=== PATIENT | female | born 1955 | race American Indian/Alaskan Native ===

== ENCOUNTER 2019-03-31 11:35 | Outpatient (CLI) | payer OTHER | END 2019-03-31 11:36 | disposition home or self-care (01) | LOC: PF 11:35 | PROVIDERS: ATTEND Internal Medicine | DX: J45.909 Unspecified asthma, uncomplicated (principal) | CPT/HCPCS: 94010 ==

== ENCOUNTER 2019-06-26 00:10 | Emergency (ER) | payer OTHER ==
[2019-06-26 00:58] LABS: Basophils % (Auto) 0.4 % (0.0-1.8); Eosinophils # (Auto) 0.1 K/mm3 (0.0-0.4); Eosinophils % (Auto) 1.8 % (0.0-4.3); Hematocrit 33.8 % (30.3-42.9); Hemoglobin 10.7 gm/dl (10.1-14.3); Lymphocytes # (Auto) 3.4 K/mm3 (1.2-5.4); Lymphocytes % (Auto) 42.5 % (13.4-35.0); Mean Corpuscular HGB Conc 32 % (30-34); Mean Corpuscular Volume 85 fl (79-97); Monocytes # (Auto) 0.6 K/mm3 (0.0-0.8); Monocytes % (Auto) 7.3 % (0.0-7.3); Platelet Count 216 K/mm3 (140-440); Red Blood Count 3.98 M/mm3 (3.65-5.03); Red Cell Distribution Width 16.5 % (13.2-15.2)
[2019-06-26] MEDS ORDERED: ZOFRAN IV ONE (01:27)
[2019-06-26] MEDS ORDERED: NACL 0.9% 1000 ML 1,000 ML IV ONE (01:29)
[2019-06-26] MEDS ORDERED: CEPHULAC PO ONE (01:32)
--- NOTE | 2019-06-26 01:35 | Emergency Department Report ---
HPI - General Chief Complaint: Abdominal Pain Time Seen by Provider: 06/26/19 01:19 - HPI HPI: Room 19 Patient is 63-year-old female presented with the chief complaint of Abdominal pain and constipation. The patient states she's been constipated for the past 2 days. Patient states she also feels the urge to urinate but has been unable to. The patient says she cannot have a bowel movement and only a small amount of liquid stool leaks out unintentionally. Patient states she is unable to pass flatus. Patient denies nausea vomiting or fever. Patient complains of rectal pain when wiping. Location: [See above] Duration: [See above] Quality: [See above] Severity: [See above] Timing: [See above] Context: [See above] Modifying factors: [See above] Associated signs and symptoms: [see above] ED Past Medical Hx - Past Medical History Hx Hypertension: Yes Hx Diabetes: Yes Hx GERD: Yes Hx Renal Disease: Yes Additional medical history: ulcers. rheumatic heart disease / MURMUR. sleep apnea - Surgical History Past Surgical History?: Yes Additional Surgical History: hysterectomy bladder tack - Family History Family history: no significant - Social History Smoking Status: Never Smoker Substance Use Type: None (denies illicit drug use), Alcohol (occasional) - Medications Home Medications: Home Medications Medication Instructions Recorded Confirmed Last Taken Type Insulin Glargine,Hum.rec.anlog 40 unit SQ QHS 07/14/13 01/27/16 01/26/16 History [Lantus Solostar] Insulin Lispro [Humalog] 15 unit SQ TID 07/14/13 01/27/16 01/26/16 History hydroCHLOROthiazide [Hctz] 20 mg PO QDAY 07/14/13 01/27/16 01/26/16 History Ciprofloxacin HCl [Ciprofloxacin 500 mg PO Q12H #14 tab 01/27/16 Unknown Rx TAB] Linaclotide [Linzess] mcg PO QDAY 01/27/16 01/26/16 History Omeprazole [PriLOSEC] mg PO QDAY 01/27/16 01/26/16 History Saxagliptin HCl [Onglyza] 5 mg PO QDAY 01/27/16 01/27/16 01/26/16 History Ciprofloxacin HCl [Ciprofloxacin 500 mg PO Q12HR #14 tab 01/28/16 Unknown Rx TAB] Docusate Sodium [Colace] 100 mg PO BID PRN #60 capsule 06/26/19 Unknown Rx Lactulose [Cephulac] 20 gm PO QDAY #90 ml 06/26/19 Unknown Rx ED Review of Systems ROS: Stated complaint: CONSTIPATION, UNABLE TO URINATE Other details as noted in HPI Constitutional: denies: fever Eyes: denies: eye pain ENT: denies: throat pain Respiratory: no symptoms reported Cardiovascular: denies: chest pain Endocrine: no symptoms reported Gastrointestinal: abdominal pain, constipation. denies: nausea, vomiting Genitourinary: other (urinary retention) Musculoskeletal: denies: back pain Neurological: denies: headache Physical Exam - Physical Exam Vital Signs: Vital Signs 06/26/19 00:14 Temperature 97.0 F L Pulse Rate 97 H Respiratory 18 Rate Blood Pressure 101/62 O2 Sat by Pulse 100 Oximetry Physical Exam: GENERAL: The patient is well-developed well-nourished female standing in room leaning over stretcher appearing to be in moderate discomfort. [] HEENT: Normocephalic. Atraumatic. Extraocular motions are intact. Patient has moist mucous membranes. NECK: Supple. Trachea midline CHEST/LUNGS: Clear to auscultation. There is no respiratory distress noted. HEART/CARDIOVASCULAR: Regular. There is no tachycardia. There is no gallop rub or murmur. ABDOMEN: Abdomen is soft, with diffuse discomfort to palpation. Patient has normal bowel sounds. There is no abdominal distention. SKIN: There is no rash. There is no edema. There is no diaphoresis. NEURO: The patient is awake, alert, and oriented. The patient is cooperative. T he patient has normal speech and gait. MUSCULOSKELETAL: There is no evidence of acute injury. ED Course Vital Signs 06/26/19 00:14 Temperature 97.0 F L Pulse Rate 97 H Respiratory 18 Rate Blood Pressure 101/62 O2 Sat by Pulse 100 Oximetry - Reevaluation(s) Reevaluation #1: 06/26/19 05:49 Patient states she has had a good bowel movement and feels improved. - Rectal Disimpaction Consent Obtained: verbal consent Time Out Performed: No Indication: fecal impaction Procedural Sedation: No Technique: manual disimpaction with Complications: pain Patient Tolerated Procedure: no complications Additional Comments: A globus of stool was removed approximately 3 times manually. Stool is soft. Patient complained of pain so procedure was discontinued ED Medical Decision Making - Lab Data Result diagrams: 06/26/19 00:40 06/26/19 00:40 Laboratory Tests 06/26/19 06/26/19 06/26/19 00:40 00:40 Unknown WBC 7.9 RBC 3.98 Hgb 10.7 Hct 33.8 MCV 85 MCH 27 L MCHC 32 RDW 16.5 H Plt Count 216 Lymph % (Auto) 42.5 H Perkins % (Auto) 7.3 Eos % (Auto) 1.8 Baso % (Auto) 0.4 Lymph # 3.4 Perkins # 0.6 Eos # 0.1 Baso # 0.0 Seg Neutrophils % 48.0 Seg Neutrophils # 3.8 Sodium 138 Potassium 3.7 Chloride 96.7 L Carbon Dioxide 20 L Anion Gap 25 BUN 46 H Creatinine 1.8 H Estimated GFR 34 BUN/Creatinine Ratio 26 Glucose 206 H Calcium 9.7 Total Bilirubin 0.40 AST 22 ALT 18 Alkaline Phosphatase 117 Total Protein 8.5 H Albumin 4.6 Albumin/Globulin Ratio 1.2 Urine Color Yellow Urine Turbidity Slightly-cloudy Urine pH 5.0 Ur Specific [place] 1.010 Urine Protein <15 mg/dl Urine Glucose (UA) >=500 Urine Ketones Neg Urine Blood Sm Urine Nitrite Neg Urine Bilirubin Neg Urine Urobilinogen < 2.0 Ur Leukocyte Esterase Mod Urine WBC (Auto) 49.0 H Urine RBC (Auto) 14.0 Urine Bacteria (Auto) 1+ Urine Mucus Few - Radiology Data Radiology results: report reviewed (CT abdomen and pelvis), image reviewed (CT abdomen and pelvis) [address] [address] Cat Scan Report Signed Patient: AISHWARYA PAIZ MR#: [id number] : 1955 Acct:[id number] Age/Sex: 63 / F ADM Date: 06/26/19 Loc: ED Attending Dr: Ordering Physician: LUANA GOODE MD Date of Service: 06/26/19 Procedure(s): CT abdomen pelvis wo con Accession Number(s): [id number] cc: LUANA GOODE MD CT ABDOMEN AND PELVIS WITHOUT CONTRAST INDICATION: constipation, diffuse abdominal pain CONTRAST: Without IV, with oral COMPARISON: None available. All CT scans at this location are performed using CT dose reduction for ALARA by means of automated exposure control. NOTE: Resolution is decreased and artifact is introduced by the patient's size. FINDINGS: Mild atelectasis or scarring is noted in the lung bases without definite consolidation. Midline abdominal wall laxity is seen. No evidence of bowel obstruction is noted. Mild increase in colonic stool burden is seen consistent with constipation. No urinary tract calculi or evidence of obstruction are noted. Appendix appears within normal limits. Gallbladder is contracted but shows no definite calculi or wall thickening. No free fluid is noted. No inflammatory changes are seen. Mild sigmoid diverticulosis is noted without evidence of diverticulitis. IMPRESSION: Evidence of mild constipation Signer Name: Roni Cruz MD Signed: 06/26/2019 3:39 AM Workstation Name: [id number] Transcribed By: GJ Dictated By: Roni Cruz MD Electronically Authenticated By: Roni Cruz MD Signed Date/Time: 06/26/19338 DD/ 5 TD/TT: - Differential Diagnosis constipation, small bowel obstruction, colonic obstruction Critical care attestation.: If time is entered above; I have spent that time in minutes in the direct care of this critically ill patient, excluding procedure time. ED Disposition Clinical Impression: Constipation, Abdominal pain Disposition: DC-01 TO HOME OR SELFCARE Is pt being admited?: No Does the pt Need Aspirin: No Condition: Stable Instructions: Abdominal Pain (ED) Additional Instructions: Return to the emergency department should you develop worsening symptoms, inability to tolerate food or liquids, high fever or any other concerns Prescriptions: Lactulose [Cephulac] 20 gm PO QDAY #90 ml Docusate Sodium [Colace] 100 mg PO BID PRN #60 capsule PRN Reason: Constipation Referrals: [facility] MD JLUIS [Primary Care Provider] - 3-5 Days CHUCK OSORIO MD [Staff Physician] - 3-5 Days (Dr. Osorio is a multimedia production assistant. Please follow-up with him for further evaluation) Time of Disposition: 05:49
[2019-06-26 02:16] LABS: Calcium 9.7 mg/dL (8.4-10.2)
[2019-06-26 02:17] LABS: Albumin 4.6 g/dL (3.9-5)
[2019-06-26 02:32] LABS: Bacteria,Urine 1+ /HPF (Negative); Bilirubin,Urine NEG (Negative); Blood,Urine SM (Negative); Color,Urine Yellow (Yellow); Mucus,Urine FEW /HPF; Protein,Urine <15 mg/dL mg/dL (Negative); Urobilinogen,Urine < 2.0 mg/dL (<2.0)
[2019-06-26] MEDS ORDERED: CEPHULAC ONE (03:43)
--- NOTE | 2019-06-26 03:44 | Cat Scan Report ---
CT ABDOMEN AND PELVIS WITHOUT CONTRAST INDICATION: constipation, diffuse abdominal pain CONTRAST: Without IV, with oral COMPARISON: None available. All CT scans at this location are performed using CT dose reduction for ALARA by means of automated e xposure control. NOTE: Resolution is decreased and artifact is introduced by the patient's size. FINDINGS: Mild atelectasis or scarring is noted in the lung bases without definite consolidation. Mid line abdominal wall laxity is seen. No evidence of bowel obstruction is noted. Mild increase in colon ic stool burden is seen consistent with constipation. No urinary tract calculi or evidence of obstruc tion are noted. Appendix appears within normal limits. Gallbladder is contracted but shows no definit e calculi or wall thickening. No free fluid is noted. No inflammatory changes are seen. Mild sigmoid diverticulosis is noted without evidence of diverticulitis. IMPRESSION: Evidence of mild constipation Signer Name: Roni Cruz MD Signed: 06/26/2019 3:39 AM Workstation Name: [email or web address]
[2019-06-26] MEDS ORDERED: GOLYTELY PO ONE (04:45)
[2019-06-26 06:27] VITALS: BP 137/68
== END 2019-06-26 06:02 | disposition home or self-care (01) ==
LOC: ED 00:10
DX: R10.9 Unspecified abdominal pain (principal); K59.00 Constipation, unspecified; I10 Essential (primary) hypertension; E11.9 Type 2 diabetes mellitus without complications; K21.9 Gastro-esophageal reflux disease without esophagitis; Z90.710 Acquired absence of both cervix and uterus; Z79.899 Other long term (current) drug therapy; Z88.6 Allergy status to analgesic agent; Z88.2 Allergy status to sulfonamides
CPT/HCPCS: 36415; 74176; 80053; 81001; 85025; 87076; 87086; 87186; 96374; 99284; J2405; J7030